=== PATIENT | male | born 1980 | race Two or more races ===

== ENCOUNTER 2021-11-11 23:23 | Inpatient (IN) | payer OTHER ==
[~2021-11-11] VITALS: Ht 160 cm; Wt 76.7 kg
--- NOTE | 2021-11-11 23:30 | NUR ---
PT BIBRA C/O SOB AND HYPERTENSION IN "214 OVER SOMETHING". PT AAOX4 BREATHING EVENLY AND UNLABORED. UPON ASSESSMENT, PT HAS RT UPPER ARM DIALYSIS ACCESS, PT HAS DIALYSIS TTHS, BUT D/T THE HOLIDAY WAS UNABLE TO GO TO REGULARLY SCHEDULED TIME. MD AT BEDSIDE. PT ATTACHED TO MONITOR AND POX. PT GIVEN BLANKET AND CALL LIGHT WITHIN REACH
[2021-11-11] MEDS ORDERED: FUROSEMIDE 40 MG/4 ML VIAL ONE (23:59)
[2021-11-12] MEDS ORDERED: FUROSEMIDE 40 MG/4 ML VIAL IV ONE
--- NOTE | 2021-11-12 | NUR ---
PT PLACED ON 2L O2 VIA NC
--- NOTE | 2021-11-12 00:05 | NUR ---
BLOOD OBTAINED AND SENT TO LAB
[2021-11-12 00:46] LABS: BASOPHILS % (AUTO) 0.6 % (0.0-2.0); EOSINOPHILS % (AUTO) 3.7 % (0.0-6.0); HEMATOCRIT 33 % (39-51); HEMOGLOBIN 10.9 g/dL (13.5-17.5); LYMPHOCYTES # (AUTO) 0.8 K/uL (0.8-4.8); LYMPHOCYTES % (AUTO) 15.9 % (20.0-44.0); MEAN CORPUSCULAR HGB CONC 33 g/dl (31.0-36.0); MEAN CORPUSCULAR VOLUME 91 fL (80-96); MONOCYTES # (AUTO) 0.4 K/uL (0.1-1.30); MONOCYTES % (AUTO) 7.7 % (2.0-12.0); NEUTROPHILS # (AUTO) 3.6 K/uL (1.8-8.9); NEUTROPHILS % (AUTO) 72.1 % (43.0-81.0); PLATELET COUNT (AUTO) 133 K/uL (150-450); RED BLOOD CELL COUNT(AUTO) 3.62 MIL/uL (4.5-6.0); WHITE BLOOD COUNT (AUTO) 5.1 K/uL (4.3-11.0)
[2021-11-12 00:51] LABS: ALBUMIN 3.6 g/dL (3.4-5.0); BILIRUBIN,DIRECT 0.1 mg/dL (0.0-0.2); BILIRUBIN,TOTAL 0.3 mg/dL (0.2-1.0); CALCIUM, SERUM 7.4 mg/dL (8.5-10.1); POTASSIUM 5.6 mmol/L (3.5-5.1); TOTAL PROTEIN, SERUM 6.4 g/dL (6.4-8.2)
[2021-11-12] MEDS ORDERED: NITROGLYCERIN 0.4 MG/TAB BOTTLE ONE (00:52)
--- NOTE | 2021-11-12 00:52 | NUR ---
VERBAL ORDER 0.4MG NITRO SL
[2021-11-12 00:55] LABS: CREATININE 12.1 mg/dL (0.6-1.3)
--- NOTE | 2021-11-12 00:59 | NUR ---
BP 184/103 93HR 96% O2 VIA 2L NC AFTER ONE DOSE 0.4MG NITRO SL. PER MD, ADMINISTER SECOND DOSE OF 0.4MG NITRO SL
[2021-11-12] MEDS ORDERED: NITROGLYCERIN 0.4 MG/TAB BOTTLE SL ONE (01:00)
[2021-11-12] MEDS ORDERED: ALBUTEROL FS 2.5 MG/0.5 ML VIAL.NEB NEB ONE (01:00)
--- NOTE | 2021-11-12 01:04 | NUR ---
CALLED RT FOR BREATHING TX
--- NOTE | 2021-11-12 01:06 | NUR ---
BP 178/99 AFTER 2ND DOSE OF 0.4MG NITRO SL. PER MD ORDER ADMINISTER 3RD DOSE 0.4MG NITRO SL
[2021-11-12] MEDS ORDERED: ALBUTEROL FS 2.5 MG/0.5 ML VIAL.NEB ONE (01:12)
--- NOTE | 2021-11-12 01:15 | NUR ---
RT AT BEDSIDE
--- NOTE | 2021-11-12 01:17 | NUR ---
BP AFTER 3RD DOSE 0.4MG NITRO 179/106
[2021-11-12] MEDS ORDERED: IPRATROPIUM BROMIDE 14 GM INHALER (or 12.9 GM) IH PRN (02:30)
[2021-11-12] MEDS ORDERED: hydrALAZINE HCL IV 20 MG VIAL IV PRN (02:30)
[2021-11-12] MEDS ORDERED: NITROGLYCERIN 0.4 MG/TAB BOTTLE SL PRN (02:30)
[2021-11-12] MEDS ORDERED: ALBUTEROL FS 2.5 MG/0.5 ML VIAL.NEB NEB PRN (02:30)
[2021-11-12] MEDS ORDERED: CALC667C6 PO (02:44)
[2021-11-12] MEDS ORDERED: TERA2CAP4 PO (02:44)
[2021-11-12] MEDS ORDERED: MELO-105 PO (02:44)
[2021-11-12] MEDS ORDERED: ISON300T27 PO (02:44)
[2021-11-12] MEDS ORDERED: FOLI0.8T2 PO (02:44)
[2021-11-12] MEDS ORDERED: CINA30TA2 PO (02:44)
[2021-11-12] MEDS ORDERED: LOSA50TA39 PO (02:44)
[2021-11-12] MEDS ORDERED: FAMO40TA7 PO (02:44)
--- NOTE | 2021-11-12 03:29 | NUR ---
PT TRANSPORTED TO ROOM 320 ON CARDAIC MONITOR PER ACLS PROTOCOL WITHOUT INCIDENT. ALL PT BELONGINGS AND PAPERWORK TRANSPORTED WITH PATIENT.
[2021-11-12 03:30] VITALS: BP 180/97
--- NOTE | 2021-11-12 04:00 | NUR ---
RN NOTES: NA FROM ER BROUGHT FROM HOME DUE TO HIGH BP AND HE MISSED 1 SESSION OF HIS HD, HD SITE:[facility] (+) FOR BRUIT ADN(+)THRILL, A/0X4, ORIENTED TO UNIT AND STAFF, FALL SAFETY AND ASPIRATION PRECAUTION OBSERVED, KEPT ON CLOSE WATCH, HE HAS MILD HEADACHE, GIVEN SOME COLD SPONGE TO HELP RELIEVED HTE PAIN. -BODY ASSESSMENT DONE, NO SKIN ISSUES FOUND, SKIN IS INTACT. -HE HAS SOME HOME MEDS IN THE BED SIDE.TO BE SEND TO PHARMACY. -FOR HD TODAY.
[2021-11-12 05:00] VITALS: BP 188/99
--- NOTE | 2021-11-12 05:05 | NUR ---
RN NOTES: -WHILE DOING THE BODY ASSESSMENT HE VERBALIZED HE HAS HEADACHE BP CHECKED 2X ITS STILL HIGH BP-188/99, HE FELT NUMBNESS ON BOTH HANDS, SQUEAK RATTLE AND LEAK REPAIRER NOTFIED, PER DR. LOVE GIVE HYDRALAZINE PRN FIRST THEN TYLENOL FOR HEADACHE.GIVEN. -CONTINUE TO MONITOR.
[2021-11-12] MEDS: ACETAMINOPHEN 325 MG TABLET PO PRN ×2 (05:09→09:37)
[2021-11-12 07:20] LABS: BASOPHILS % (AUTO) 0.5 % (0.0-2.0); EOSINOPHILS % (AUTO) 1.2 % (0.0-6.0); HEMATOCRIT 33 % (39-51); HEMOGLOBIN 11.1 g/dL (13.5-17.5); LYMPHOCYTES # (AUTO) 0.8 K/uL (0.8-4.8); LYMPHOCYTES % (AUTO) 12.4 % (20.0-44.0); MEAN CORPUSCULAR HGB CONC 34 g/dl (31.0-36.0); MEAN CORPUSCULAR VOLUME 89 fL (80-96); MONOCYTES # (AUTO) 0.4 K/uL (0.1-1.30); MONOCYTES % (AUTO) 5.9 % (2.0-12.0); NEUTROPHILS # (AUTO) 5.3 K/uL (1.8-8.9); PLATELET COUNT (AUTO) 134 K/uL (150-450); RED BLOOD CELL COUNT(AUTO) 3.68 MIL/uL (4.5-6.0); WHITE BLOOD COUNT (AUTO) 6.6 K/uL (4.3-11.0)
--- NOTE | 2021-11-12 07:30 | NUR ---
FUNERAL LIMOUSINE DRIVER OPENING NOTES RECEIVED PATENT IN BED, AWAKE, ALERT AND ORIENTED X 4, IN NO ACUTE DISTRESS NOTED. WITH COMPLAINTS OF HEADACHE, PAIN SCALE 5/10. TYLENOL WAS GIVEN FROM PREVIOUS SHIFT. IV ACCESS ON LEFT AC G#20 PATENT AND FLUSHES WELL. RIGHT AV SHUNT FOR HD NOTED, (+) BRUIT (+) THRILL. SAFETY PRECAUTIONS IN PLACE: BED ON LOWEST LOCKED POSITION. SIDE RAILS UP X2, CALL LIGHT WITHIN EASY REACH. WILL CONTINUE TO MOMNITOR ACCORDINGLY. Addendum: 11/12/21 at 0751 by JONNIE HARO RN ON TELE MONITOR SHOWING SR HR AT 92
--- NOTE | 2021-11-12 07:44 | NUR ---
RN NOTES: -PATIENT LATEST BP-181/94, STILL WITH ON AND OFF HEADACHE, FOR HD TODAY, NO SIGN OF RESPIRATORY DISCOMFORT, ENDORSED FOR CONTINUITY OF CARE.
[2021-11-12 08:00] VITALS: BP_SYST 179; BP_SYST 198; BP_DIAS 93; BP_DIAS 96
--- NOTE | 2021-11-12 08:00 | NUR ---
RN NOTES BLOOD PRESSURE OF 198/103. DUE MORNING BLOOD PRESSURE MEDS GIVEN. WILL RECHECKED BP AFTER 30 MINS.
[2021-11-12 08:06] LABS: THYROID STIMULATING HORMONE 1.339 uIU/mL (0.358-3.74)
[2021-11-12 08:14] LABS: ALANINE AMINOTRANSFERASE < 6 U/L (12-78); ALBUMIN 3.5 g/dL (3.4-5.0); ALKALINE PHOSPHATASE 195 U/L (46-116); ASPARTATE AMINOTRANSFERASE 9 U/L (15-37); BILIRUBIN,TOTAL 0.3 mg/dL (0.2-1.0); CALCIUM, SERUM 8.6 mg/dL (8.5-10.1); CARBON DIOXIDE 21 mmol/L (21-32); CHLORIDE 96 mmol/L (98-107); GLUCOSE 95 mg/dL (74-106); MAGNESIUM 3.7 mg/dL (1.8-2.4); PHOSPHORUS 2.8 mg/dL (2.5-4.9); SODIUM SERUM 132 mmol/L (136-145); TOTAL PROTEIN, SERUM 6.3 g/dL (6.4-8.2)
--- NOTE | 2021-11-12 08:26 | NUR ---
RN NOTES RECEIVED A PHONE CALL FROM LAB SPOKE TO ADALGISA REPORTING POTASSIUM CRITICAL RESULT OF 6.4. RESULT RELAYED TO DR. WEEMS WITH ORDER MADE AND CARRIED OUT.
[2021-11-12 08:28] LABS: CREATININE 12.9 mg/dL (0.6-1.3); POTASSIUM 6.4 mmol/L (3.5-5.1); UREA NITROGEN, BLOOD 102 mg/dL (7-18)
--- NOTE | 2021-11-12 08:30 | NUR ---
RN NOTES RECHEKED BP 179/96. WILL CONTINUE TO MONITOR
[2021-11-12] MEDS: ISONIAZID (300 MG) 300 MG TABLET PO SCH (08:34)
[2021-11-12] MEDS: VIT B CMPLX 3/FA/VIT C/BIOTIN 1 TAB TABLET PO SCH (08:34)
[2021-11-12] MEDS: CINACALCET HCL 30 MG TABLET PO SCH (08:34)
[2021-11-12] MEDS: HEPARIN SODIUM, PORCINE 5000 UNITS/1 ML VIAL SQ SCH (08:34)
[2021-11-12] MEDS: FUROSEMIDE 40 MG/4 ML VIAL IV SCH ×2 (08:35→12:20)
[2021-11-12] MEDS: CALCIUM ACETATE 667 MG CAP/TAB PO SCH ×3 (08:35→16:38)
[2021-11-12 09:00] VITALS: BP 179/96
[2021-11-12] MEDS ORDERED: NIFEdipine XL (30MG) 30 MG TAB PO SCH (09:00)
[2021-11-12] MEDS ORDERED: LOSARTAN POTASSIUM 50 MG TABLET PO SCH ×2 (09:00→17:00)
[2021-11-12] MEDS ORDERED: SODIUM POLYSTYRENE SULFONATE 15 G/60 ML BOTTLE PO ONE (09:30)
[2021-11-12] MEDS ORDERED: CLON0.2T PO (09:36)
[2021-11-12] MEDS ORDERED: POLY15DR64 EACHEYE (09:36)
[2021-11-12] MEDS: hydrALAZINE HCL IV 20 MG VIAL IV PRN (12:04)
--- NOTE | 2021-11-12 12:08 | NUR ---
RN NOTES PATIENT IS ON ONGOING DIALYSIS. BLOOD PRESSURE OF 201/109, HR 89, HYDRALAZINE GIVEN ORDERED. SOPHIA CONTINUE TO MONITOR.
--- NOTE | 2021-11-12 12:22 | NUR ---
RN NOTES DUE FUROSEMIDE HELD. PATIENT IS ON DIALYSIS.
--- NOTE | 2021-11-12 14:00 | NUR ---
RN NOTES PATIENT TOLERATED DIALYSIS, NO UNTOWARD S/SX NOTED. 2.5L OUT.
[2021-11-12 16:00] VITALS: BP 162/89
[2021-11-12] MEDS: TERAZOSIN HCL 1 MG CAPSULE PO SCH (17:06)
--- NOTE | 2021-11-12 18:23 | NUR ---
PLASTER PATTERN CASTER CLOSING NOTES PATIENT IN BED, AWAKE, ALERT AND ORIENTED X 4, IN NO ACUTE DISTRESS NOTED. WITH NO COMPLAINTS OF PAIN AT THIS TIME. IV ACCESS ON LEFT AC G#20 PATENT AND FLUSHES WELL. RIGHT AV SHUNT FOR HD NOTED, (+) BRUIT (+) THRILL. ON TELE MONITOR SHOWING ST HR AT 110-120. SAFETY PRECAUTIONS IN PLACE: BED ON LOWEST LOCKED POSITION. SIDE RAILS UP X2, CALL LIGHT WITHIN EASY REACH. ALL NEEDS ATTENDED AND MET. DUE MEDS GIVEN ORDERED. WILL ENDORSE TO NEXT SHIFT FOR JENNIFER.
[2021-11-12] MEDS: VALSARTAN 80 MG TABLET PO SCH (18:30)
--- NOTE | 2021-11-12 19:15 | NUR ---
RETREAD MOLD OPERATOR OPENING NOTES RECEIVED PATIENT LAYING AWAKE IN BED. A/O X4. PATIENT WITH REGULAR AND UNLABORED BREATHING ON 2LPM VIA NASAL CANULA, TOLERATED WELL. NO SIGNS AND SYMPTOMS OF DISTRESS NOTED AT THIS TIME. NO COMPLAINS OF PAIN OR DISCOMFORT AT THIS TIME. TELE SR @ 95 BPM. IV ACCESS LAC G #20 SL. IV ACCESS PATENT AND INTACT. SAFETY PRECAUTIONS ENFORCED BED LOCKED AND AT LOWEST POSITION. SIDERAILS UP X2. CALL LIGHT WITHIN REACH AT ALL TIMES. WILL CONTINUE TO MONITOR PATIENT.
[2021-11-12 20:00] VITALS: BP 164/86
[2021-11-12] MEDS: FAMOTIDINE (20 MG) 20 MG TABLET PO SCH (22:08)
[2021-11-13] VITALS: BP 152/89
[2021-11-13 04:00] VITALS: BP 155/88
[2021-11-13 06:55] LABS: BASOPHILS % (AUTO) 0.5 % (0.0-2.0); EOSINOPHILS % (AUTO) 2.7 % (0.0-6.0); HEMATOCRIT 33 % (39-51); HEMOGLOBIN 11.3 g/dL (13.5-17.5); LYMPHOCYTES # (AUTO) 0.7 K/uL (0.8-4.8); LYMPHOCYTES % (AUTO) 16.3 % (20.0-44.0); MEAN CORPUSCULAR HGB CONC 35 g/dl (31.0-36.0); MEAN CORPUSCULAR VOLUME 89 fL (80-96); MONOCYTES # (AUTO) 0.4 K/uL (0.1-1.30); MONOCYTES % (AUTO) 9.4 % (2.0-12.0); NEUTROPHILS # (AUTO) 3.2 K/uL (1.8-8.9); NEUTROPHILS % (AUTO) 71.1 % (43.0-81.0); PLATELET COUNT (AUTO) 131 K/uL (150-450); RED BLOOD CELL COUNT(AUTO) 3.67 MIL/uL (4.5-6.0); WHITE BLOOD COUNT (AUTO) 4.5 K/uL (4.3-11.0)
--- NOTE | 2021-11-13 07:07 | NUR ---
CONTROLLER MECHANIC CLOSING NOTES PATIENT STILL LAYING AWAKE IN BED. A/O X4. PATIENT WITH REGULAR AND UNLABORED BREATHING ON 2LPM VIA NASAL CANULA, TOLERATED WELL. NO SIGNS AND SYMPTOMS OF DISTRESS NOTED AT THIS TIME. NO COMPLAINS OF PAIN OR DISCOMFORT AT THIS TIME. TELE SR @ 99 BPM. IV ACCESS LAC G #20 SL. IV ACCESS PATENT AND INTACT. SAFETY PRECAUTIONS ENFORCED BED LOCKED AND AT LOWEST POSITION. SIDERAILS UP X2. CALL LIGHT WITHIN REACH AT ALL TIMES. WILL ENDORSE CONTINUITY OF CARE TO DAY SHIFT NURSE.
[2021-11-13 07:40] LABS: CALCIUM, SERUM 8.5 mg/dL (8.5-10.1); POTASSIUM 4.9 mmol/L (3.5-5.1)
[2021-11-13 07:44] LABS: CREATININE 10.7 mg/dL (0.6-1.3)
[2021-11-13 08:06] VITALS: BP 174/80
[2021-11-13] MEDS: ISONIAZID (300 MG) 300 MG TABLET PO SCH (08:48)
[2021-11-13] MEDS: hydrALAZINE HCL 50 MG TABLET PO SCH ×3 (08:49→16:18)
[2021-11-13] MEDS: VIT B CMPLX 3/FA/VIT C/BIOTIN 1 TAB TABLET PO SCH (08:50)
[2021-11-13] MEDS: CALCIUM ACETATE 667 MG CAP/TAB PO SCH ×3 (08:50→16:17)
[2021-11-13] MEDS: VALSARTAN 80 MG TABLET PO SCH (08:50)
[2021-11-13] MEDS: CARVEDILOL 12.5 MG TABLET PO SCH ×2 (08:50→21:14)
[2021-11-13] MEDS: CINACALCET HCL 30 MG TABLET PO SCH (08:51)
[2021-11-13] MEDS: NIFEdipine XL (30MG) 30 MG TAB PO SCH (08:51)
[2021-11-13] MEDS: hydrALAZINE HCL IV 20 MG VIAL IV PRN ×2 (08:51→16:18)
[2021-11-13] MEDS: HEPARIN SODIUM, PORCINE 5000 UNITS/1 ML VIAL SQ SCH (08:52)
--- NOTE | 2021-11-13 09:49 | NUR ---
RN NOTE IV HYDRALAZINE GIVEN FOR BP 174/80, HR 100. PT AWAKE ALERT. COMPLAINT OF MINOR HEADACHE. EDUCATION GIVEN. WILL CONTINUE TO MONITOR.
--- NOTE | 2021-11-13 09:49 | NUR ---
RN OPENING NOTE PT AWAKE IN BED RESTING. ON RA WITH NO SOB PRESENT. A/O X4 AND MAORI SPEAKING. ON STEWARD/STEWARDESS NIGHT. BATHROOM PRIVILEGES AND SELF AMBULATORY. STEADY GAIT. L AC 20G IV PRESENT. LABS AND ORDERS CHECKED. SAFETY MEASURES IN PLACE. SIDE RAILS RAISED. BED LOWERED. CALL LIGHT WITHIN REACH. WILL CONTINUE TO MONITOR.
[2021-11-13] MEDS: ACETAMINOPHEN 325 MG TABLET PO PRN (12:28)
[2021-11-13 15:49] VITALS: BP 155/83
[2021-11-13] MEDS: TERAZOSIN HCL 1 MG CAPSULE PO SCH (17:34)
--- NOTE | 2021-11-13 18:54 | NUR ---
RN CLOSING NOTE PT IN STABLE CONDITION. GIVE REPORT TO NIGHT NURSE FOR JENNIFER
[2021-11-13 20:00] VITALS: BP 132/78
--- NOTE | 2021-11-13 20:00 | NUR ---
MS RN NOTES RECEIVED ON BED A/O X4,BREATHING EASY, NO SOB,O2 IN USED AT 2L/NC TO KEEP O2 SAT ABOVE 90%.WITH LEFT AC SALINE LOCK INTACT AND PATENT,RIGHT AV SHUNT FOR HD ACCESS.,NO COMPLAINTS AT THE MOMENT,CALL LIGHT IN REACH,NEEDS ANTICIPATED.
[2021-11-13] MEDS: FAMOTIDINE (20 MG) 20 MG TABLET PO SCH (21:14)
[2021-11-13 21:21] VITALS: BP 132/78
[2021-11-14] VITALS: BP_SYST 139; BP_DIAS 71; BP_DIAS 75
[2021-11-14 04:00] VITALS: BP 133/82
[2021-11-14 05:04] VITALS: BP 133/82
--- NOTE | 2021-11-14 05:30 | NUR ---
ECONOMIC HISTORIAN NOTES ACCU-CHECK BLOOD SUGAR CHECK 99,NO INSULIN COVERAGE. Addendum: 11/14/21 at 0558 by JOHAN IRIZARRY RN WRONG ENTRY OF NOTES,NOT INTENDED FOR THIS PATIENT.
[2021-11-14 06:37] LABS: BASOPHILS % (AUTO) 0.7 % (0.0-2.0); EOSINOPHILS % (AUTO) 4.7 % (0.0-6.0); HEMATOCRIT 38 % (39-51); HEMOGLOBIN 12.7 g/dL (13.5-17.5); LYMPHOCYTES # (AUTO) 1.3 K/uL (0.8-4.8); LYMPHOCYTES % (AUTO) 26.5 % (20.0-44.0); MEAN CORPUSCULAR HGB CONC 33 g/dl (31.0-36.0); MEAN CORPUSCULAR VOLUME 89 fL (80-96); MONOCYTES # (AUTO) 0.6 K/uL (0.1-1.30); MONOCYTES % (AUTO) 11.7 % (2.0-12.0); NEUTROPHILS # (AUTO) 2.8 K/uL (1.8-8.9); NEUTROPHILS % (AUTO) 56.4 % (43.0-81.0); PLATELET COUNT (AUTO) 137 K/uL (150-450); RED BLOOD CELL COUNT(AUTO) 4.27 MIL/uL (4.5-6.0); WHITE BLOOD COUNT (AUTO) 4.9 K/uL (4.3-11.0)
--- NOTE | 2021-11-14 06:48 | NUR ---
WOOD CASKET ASSEMBLER NOTES NO SIGNIFICANT CHANGE IN STATUS,SLEEP WELL,FOR D TODAY .BLOOD PRESSURE CONTROLLED.IN NO ACUTE DISTRESS..
[2021-11-14 06:49] LABS: CALCIUM, SERUM 8.5 mg/dL (8.5-10.1); POTASSIUM 5.5 mmol/L (3.5-5.1)
[2021-11-14 07:01] LABS: CREATININE 8.6 mg/dL (0.6-1.3)
--- NOTE | 2021-11-14 07:46 | NUR ---
MACHINE CUTTER OPENING NOTES RECEIVED PATIENT IN CHAIR, AWAKE, A/O X4. PATIENT ON ROOM AIR; BREATHING EVEN AND UNLABORED AT THIS TIME. NO COMPLAINS OF PAIN. TELE MONITOR WITH A CURRENT READING OF SR 86 BPM. IV ACCESS ON LAC G #20 PRESENT AND INTACT. R AV SHUNT IN PLACE. SAFETY PRECAUTIONS IN PLACE, BED IN LOW POSITION AND LOCKED, RAILS UP X2, CALL LIGHT WITHIN REACH. WILL CONTINUE TO MONITOR PATIENT.
[2021-11-14 08:00] VITALS: BP 165/97
[2021-11-14] MEDS: CALCIUM ACETATE 667 MG CAP/TAB PO SCH ×3 (08:56→16:33)
[2021-11-14] MEDS: CINACALCET HCL 30 MG TABLET PO SCH (08:56)
[2021-11-14] MEDS: VIT B CMPLX 3/FA/VIT C/BIOTIN 1 TAB TABLET PO SCH (08:56)
[2021-11-14] MEDS: hydrALAZINE HCL 50 MG TABLET PO SCH ×3 (08:57→16:32)
[2021-11-14] MEDS: NIFEdipine XL (30MG) 30 MG TAB PO SCH (08:57)
[2021-11-14] MEDS: CARVEDILOL 12.5 MG TABLET PO SCH (08:58)
[2021-11-14] MEDS: HEPARIN SODIUM, PORCINE 5000 UNITS/1 ML VIAL SQ SCH (08:59)
[2021-11-14] MEDS: VALSARTAN 80 MG TABLET PO SCH (09:00)
[2021-11-14] MEDS: ISONIAZID (300 MG) 300 MG TABLET PO SCH (09:00)
[2021-11-14] MEDS ORDERED: HYDR-4077 PO (09:26)
[2021-11-14] MEDS ORDERED: NIFE-35 PO (09:26)
[2021-11-14] MEDS ORDERED: CARV12.52 PO (09:26)
[2021-11-14 12:00] VITALS: BP 163/90
--- NOTE | 2021-11-14 16:32 | NUR ---
ICT DEVELOPMENT MANAGER NOTES 1700 HYDRALAZINE NON-ADMINISTERED. PATIENT WILL BE HAVING HD
--- NOTE | 2021-11-14 16:35 | NUR ---
PATIENT STARTED HD
[2021-11-14 16:38] VITALS: BP 134/80
[2021-11-14] MEDS: TERAZOSIN HCL 1 MG CAPSULE PO SCH (17:30)
--- NOTE | 2021-11-14 17:30 | NUR ---
IMPROVEMENT DIRECTOR NOTES 1800 HYTRIN NON-ADMINISTERED. PATIENT IS ON HD AT THIS TIME.
--- NOTE | 2021-11-14 19:03 | NUR ---
MAINTENANCE TECH CLOSING NOTES PATIENT IN BED, AWAKE, A/O X4 HD NOW. PATIENT ON ROOM AIR; BREATHING EVEN AND UNLABORED AT THIS TIME. NO COMPLAINS OF PAIN. TELE MONITOR WITH A CURRENT READING OF SR. IV ACCESS ON LAC G #20 PRESENT AND INTACT. R AV SHUNT IN PLACE. SAFETY PRECAUTIONS IN PLACE, BED IN LOW POSITION AND LOCKED, RAILS UP X2, CALL LIGHT WITHIN REACH. ALL DOCUMENTS FOR DISCHARGE READY. WILL ENDORSE TO TEST BORING CREW CHIEF NURSE FOR JENNIFER.
--- NOTE | 2021-11-14 22:00 | NUR ---
DISCHARGE NOTE PT LEFT UNIT AT THIS TIME IN STABLE CONDITION.
== END 2021-11-14 22:00 | disposition home or self-care (01) | DRG 194 ==
LOC: ER 23:31 → TELE 11-12 02:14
PROVIDERS: ADMIT Internal Medicine; ATTEND Internal Medicine
PROC: 5A1D70Z Performance of Urinary Filtration, Intermittent, Less than 6 Hours Per Day (ICD-10-PCS; principal; 2021-11-12)
DX: I13.2 Hypertensive heart and chronic kidney disease with heart failure and with stage 5 chronic kidney disease, or end stage renal disease (principal); N18.6 End stage renal disease; I50.33 Acute on chronic diastolic (congestive) heart failure; I16.0 Hypertensive urgency; E87.5 Hyperkalemia; Z20.822 Contact with and (suspected) exposure to COVID-19; Z99.2 Dependence on renal dialysis; Z91.19 Patient's noncompliance with other medical treatment and regimen; N25.81 Secondary hyperparathyroidism of renal origin; Z79.899 Other long term (current) drug therapy
CPT/HCPCS: 36415; 71045-TC; 80048-TC; 80053-TC; 80076-TC; 82962-TC; 83605-TC; 83735-TC; 83880; 84100-TC; 84443-TC; 84484-TC; 85025-TC; 85730-TC; 86706; 87040-TC; 87081-TC; 87340; 90935-TC; 93307-TC; C9803; G0378; J0360; J1644; J1940